=== PATIENT | female | born 1980 | race Hispanic/Latino ===

== ENCOUNTER 2018-02-08 17:33 | Emergency (ER) | payer MEDICAID ==
[2018-02-08 17:40] VITALS: BP 120/82; PULSE 92; RESP 19; TEMP 99.1; O2SAT 98
--- NOTE | 2018-02-08 17:56 | C.PDOC ---
History Of Present Illness 37 y/o female c/o rash that started on right buttock and has now spread to left buttock and lower back as well as to neck and upper arms over 3 weeks, rash is itchy, mild relief with topical hydrocortisone. denies any new topical substances, no new foods or medications. no fever. no swelling to lips tongue to face. Denies fever, nausea, vomiting, and any other associated symptoms. Time Seen by Provider: 02/08/18 17:49 Chief Complaint (Nursing): Abnormal Skin Integrity History Per: Patient History/Exam Limitations: no limitations Onset/Duration Of Symptoms: Days Current Symptoms Are (Timing): Still Present Past Medical History Reviewed: Historical Data, Nursing Documentation, Vital Signs Vital Signs: Last Vital Signs Temp 99.1 F 02/08/18 17:35 Pulse 92 H 02/08/18 17:35 Resp 19 02/08/18 17:35 BP 120/82 02/08/18 17:35 Pulse Ox 98 02/08/18 17:35 - Medical History PMH: Mitral Valve Prolapse Family History: States: Unknown Family Hx - Social History Hx Alcohol Use: No Hx Substance Use: No - Immunization History Hx Tetanus Toxoid Vaccination: Yes Hx Influenza Vaccination: No Hx Pneumococcal Vaccination: No Review Of Systems Except As Marked, All Systems Reviewed And Found Negative. Constitutional: Negative for: Fever, Chills ENT: Positive for: Other (no lip swelling. ) Gastrointestinal: Negative for: Nausea, Vomiting Skin: Positive for: Rash (to the right and left buttock, lower back, neck, and upper arms bilaterally. ) Physical Exam - Physical Exam Appears: Well, Non-toxic Skin: Warm, Dry, Rash (Red urticarial lesions to the right buttock, middle and left side of the lower back, upper arms bilaterally, and left-side of the neck. ) Head: Atraumatic, Normacephalic Eye(s): bilateral: PERRL Oral Mucosa: Moist Lips: Normal Appearing, No Swelling Throat: Normal, No Erythema Neck: Normal ROM, Other (rash to the left side of the neck.) Chest: Symmetrical, No Deformity Cardiovascular: Rhythm Regular Respiratory: Normal Breath Sounds, No Rales, No Rhonchi, No Wheezing Gastrointestinal/Abdominal: Normal Exam, Soft, Other Back: Normal Inspection, No Vertebral Tenderness, No Paraspinal Tenderness, Other (rash to the lower back towards the buttock. ) Extremity: Normal ROM (x4), Other (rash to the left upper arm. ) Neurological/Psych: Oriented x3, Normal Speech, Normal Motor, Normal Sensation, Normal Reflexes Gait: Steady ED Course And Treatment O2 Sat by Pulse Oximetry: 98 (RA) Pulse Ox Interpretation: Normal Progress Note: Progress: Given Claritin and Prednisone. Medical Decision Making Medical Decision Making: pt with uritcarial appearing rash; tx with steroids and antihistamine. 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 Disposition Counseled Patient/Family Regarding: Need For Followup, Rx Given - Disposition Disposition: HOME/ ROUTINE Disposition Time: 18:37 Condition: GOOD Additional Instructions: Please take prednisone as prescribed. Take benadryl at bedtime and claritin in the day. Follow up with needle process felt goods supervisor. If rash appears to be getting worse, stop prednsione., Prescriptions: predniSONE [predniSONE Tab] 2 tab PO DAILY #8 tab Instructions: Skin Rash (DC) Forms: [employer] (Lithuanian), General Discharge Instructions - Clinical Impression Clinical Impression: Rash and nonspecific skin eruption - PA / [employer] / Resident Statement MD/DO has reviewed & agrees with the documentation as recorded. - Scribe Statement The provider has reviewed the documentation as recorded by the Scribe (Sarah Sheffield) All medical record entries made by the Scribe were at my direction and personally dictated by me. I have reviewed the chart and agree that the record accurately reflects my personal performance of the history, physical exam, medical decision making, and the department course for this patient. I have also personally directed, reviewed, and agree with the discharge instructions and disposition.
== END 2018-02-08 18:44 | disposition home or self-care (01) ==
LOC: C.ER 17:33
DX: R21 Rash and other nonspecific skin eruption (principal)